=== PATIENT | female | born 1990 | race Caucasian/White ===

== ENCOUNTER 2018-12-17 20:31 | Emergency (ER) | payer BC ==
[2018-12-17 20:55] LABS: ADD MAN DIFF? NO
[2018-12-17] MEDS: SOD CHLORIDE 0.9% 1,000 ML IV (20:59)
[2018-12-17 21:01] LABS: WHITE BLOOD COUNT 9.6 10^3/ul (4.8-10.8)
[2018-12-17 21:01] LABS: BASOPHILS % 0.4 % (0.0-2.0); HEMATOCRIT 42.2 % (37.0-47.0); HEMOGLOBIN 14.1 g/dl (12.0-16.0); LYMPHOCYTES # 2.6 10^3/ul (0.8-2.9); LYMPHOCYTES % 27.4 % (15.0-51.0); MEAN CORPUSCULAR HEMOGLOBIN 31.6 pg (29.0-33.0); MEAN CORPUSCULAR HGB CONC 33.4 g/dl (32.0-37.0); MEAN CORPUSCULAR VOLUME 94.6 fl (82.0-101.0); MEAN PLATELET VOLUME 8.3 fl (7.4-10.4); MONOCYTE # 0.6 10^3/ul (0.3-0.9); MONOCYTES % 6.6 % (0.0-11.0); NEUTROPHIL # 6.3 10^3/ul (1.6-7.5); NEUTROPHILS % 65.2 % (39.0-77.0); PLATELET COUNT 132 10^3/UL (140-415); RED BLOOD COUNT 4.46 10^6/ul (4.20-5.40)
[2018-12-17 21:21] LABS: ANION GAP 10 (5-13); BLOOD UREA NITROGEN 13 mg/dl (7-20); CALCIUM 9.3 mg/dl (8.4-10.2); CARBON DIOXIDE 27 mmol/L (21-31); CHLORIDE 102 mmol/L (97-110); CREATININE 0.75 mg/dl (0.44-1.00); Estimated GFR > 60 mL/min (>60); GLUCOSE 101 mg/dl (70-220); POTASSIUM 3.9 mmol/L (3.5-5.1); SODIUM 139 mmol/L (135-144)
== END 2018-12-17 22:41 | disposition home or self-care (01) ==
LOC: E/R 22:41
DX: R55 Syncope and collapse (principal); I49.5 Sick sinus syndrome
CPT/HCPCS: 36415; 80048; 81025; 85025; 93005; 99284-25

== ENCOUNTER 2019-05-01 23:02 | Emergency (ER) | payer BC ==
[2019-05-02] MEDS: DEXAMETHASONE 10 MG/ML 1 ML INJ IM (00:50)
[2019-05-02] MEDS: IBUPROFEN 600 MG TAB PO (00:51)
== END 2019-05-02 01:50 | disposition home or self-care (01) ==
LOC: FTE 23:02
DX: M94.0 Chondrocostal junction syndrome [Tietze] (principal); J40 Bronchitis, not specified as acute or chronic
CPT/HCPCS: 81025; 93005; 96372; 99284-25